=== PATIENT | female | born 2000 | race Caucasian/White ===

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

== ENCOUNTER 2019-04-18 19:11 | Emergency (ER) | payer BC, OTHER ==
--- OUTSIDE RECORDS SUMMARY | 2019-04-18 19:21 | XMS REPORT | Continuity of Care Document ---
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 Onset: 03/09/2015 Social History Type Date Description Comments Sex Unknown Tobacco Use Start: Unknown Never Smoked Cigarettes ETOH Use Never used alcohol Recreational Drug Use Denies Drug Use Tobacco Use Start: Unknown Patient denies history of smoking Smoking Status Reviewed: 02/21/19 Patient denies history of smoking Allergies, Adverse Reactions, Alerts Active Allergies Reaction Severity Comments Date Acetaminophen lips swell 02/04/2018 Inactive Allergies NKDA 03/09/2015 Medications Active Medications SIG Qnty Indications Ordering Date Provider Prazosin HCL one capsule PO an 60caps F51.5 Jacqueline, 02/21/2019 1mg hour prior to Jenniferleigh, Capsules bedtime, if not THERAPEUTIC RECREATION DIRECTOR effective in 3-4 days can increase to 2 capsules Nuvaring insert vaginally 3units Z30.015 Jacqueline, 02/21/2019 for 3 weeks, then Jenniferleigh, 0.12-0.015mg/24HR remove for one THERAPEUTIC RECREATION DIRECTOR Ring week Buspirone HCL take one to one 90tabs F41.1 [place], 10/10/2018 7.5mg and a half tablet Jenniferleigh, Tablets by mouth up to THERAPEUTIC RECREATION DIRECTOR three times a day as needed for anxiety Escitalopram Oxalate 1 full tablet by 90tabs F41.1 [place], 09/29/2018 mouth every day Jenniferleigh, 20mg Tablets THERAPEUTIC RECREATION DIRECTOR Immunizations CPT Code Status Date Vaccine Lot # [id number] Given 02/04/2018 Influenza Virus Vaccine, Quadrivalent, 36 Mos+, [id number] .[id number] U-MenB Given 05/28/2017 Meningococcal B,Unspecified 18430 Given 04/30/2016 Meningococcal Conjugate Vaccine Serogroups For Intramuscular Use 21157 Given 01/24/2013 Gardasil 29989 Given 09/01/2012 Meningococcal Conjugate Vaccine Serogroups For Intramuscular Use 16288 Given 06/23/2012 Tdap injection 60653 Given 06/10/2012 Gardasil 97341 Given 03/04/2010 Tdap injection 57138 Given 02/03/2007 Varicella (Chicken Pox) Vaccine 35432 Given 10/06/2004 Poliovirus Vaccine Subcutaneous Or Intramuscular 06845 Given 10/06/2004 MMR Vaccine, Live, For Subcutaneous Use 56816 Given 10/06/2004 DTaP Vaccine Younger Than 7 54635 Given 12/19/2002 Varicella (Chicken Pox) Vaccine 60521 Given 04/11/2002 Gardasil 49446 Given 06/23/2001 Hib PRP-T Conjugate 4 Dose Schedule 87702 Given 06/23/2001 DTaP Vaccine Younger Than 7 97069 Given 03/22/2001 MMR Vaccine, Live, For Subcutaneous Use 74387 Given 09/07/2000 Hepatitis B Vaccine Pediatric/Adolescent 90575 Given 09/07/2000 Hib PRP-T Conjugate 4 Dose Schedule 73497 Given 06/10/2000 Poliovirus Vaccine Subcutaneous Or Intramuscular 40252 Given 06/10/2000 DTaP Vaccine Younger Than 7 52162 Given 04/12/2000 Poliovirus Vaccine Subcutaneous Or Intramuscular 25872 Given 04/12/2000 DTaP Vaccine Younger Than 7 35051 Given 02/13/2000 Poliovirus Vaccine Subcutaneous Or Intramuscular 67371 Given 02/13/2000 DTaP Vaccine Younger Than 7 44816 Given 01/26/2000 Hepatitis B Vaccine Pediatric/Adolescent 50870 Given 01/26/2000 Hib PRP-T Conjugate 4 Dose Schedule 69961 Given 1999 Hepatitis B Vaccine Pediatric/Adolescent 34609 Given 1999 Hib PRP-T Conjugate 4 Dose Schedule Vital Signs Date Vital Result Comment 02/21/2019 2:19pm BP Systolic 141 mmHg BP Diastolic 84 mmHg Body Temperature 98.5 F Heart Rate 95 /min Respiratory Rate 18 /min Height 67 inches 5'7" Weight 170.38 lb BMI (Body Mass Index) 26.7 kg/m2 BSA (Body Surface Area) 1.89 m2 [place] body weight in kilograms 61 kg Height Percentile 86 % Weight Percentile 92nd O2 % BldC Oximetry 98 % Ra 02/07/2019 7:53am BP Systolic Sitting Left Arm 128 mmHg BP Diastolic Sitting Left Arm 70 mmHg Body Temperature 98.0 F Heart Rate 84 /min Respiratory Rate 18 /min Height 67 inches 5'7" Weight 169.38 lb BMI (Body Mass Index) 26.5 kg/m2 BSA (Body Surface Area) 1.88 m2 [place] body weight in kilograms 61 kg Height Percentile 86 % Weight Percentile 92nd Results Test Acquired Date Facility Test Result H/L Range Note CBC 02/07/[address] White Blood 6.6 K/uL Normal 3.1-10.7 1 W/Automated [address] Count Diff [place], [place] [id number] [phone] Red Blood Count 4.37 M/uL Normal 3.90-5.40 Hemoglobin 13.0 gm/dL Normal 11.6-15.8 Hematocrit 39.4 % Normal 36.0-46.1 Mean Cell Volume 90.2 fl Normal 80.9-99.0 Mean Corpuscular HGB 29.7 pg Normal 25.9-32.7 Mean Corpuscular HGB Conc 33.0 g/dL Normal 30.8-34.3 Platelet Count 265 K/uL Normal 155-360 Red Cell Distri Width SD 38.5 fl Normal 36-47 Red Cell Distri Width %CV 11.8 % Normal 11.7-14.4 Mean Platelet Volume 9.6 fl Normal 8.9-12.4 Neut% 48.7 % Normal 28.0-68.0 Lymph % 40.9 % Normal 20.0-42.0 [place] % 6.9 % Normal 4.3-13.2 Eo% 2.7 % Normal 0.0-6.6 Bas% 0.6 % Normal 0.0-1.1 Immature Grans 0.2 % Normal 0.0-5.0 NRBC % 0.0 /100WBC < 10/ 100 WBC Neut# 3.23 K/uL Normal 1.8-7.0 Lymph # 2.71 K/uL Normal 1.0-4.0 [place] # 0.46 K/uL Normal 0.3-0.9 Eos # 0.18 K/uL Normal 0.0-0.5 Baso # 0.04 K/uL Normal 0.0-0.1 Immature Grans Absolute 0.01 K/uL NRBC # 0.00 K/uL Laboratory test 02/07/[address] [facility] [address] Thyroid 1.75 Normal 0.30- 4.[address] Stim uIU/[place] [address] Hormone [phone] 1 R53.83 Procedures Date Code Description Status 09/29/2018 04826 Brief Emotional/Behav Assessment W/ Scoring Doc Per Completed Standard Inst Medical Devices Description No Information Available Encounters Type Date Location Provider Dx Diagnosis Office Visit 02/21/2019 [facility] Maulik Villatoro.5 Nightmare disorder 2:15p [address] VIDAL Mario Z30.015 Encounter for initial prescription of vagnl ring Office Visit 02/07/2019 [facility] F41.1 Generalized 8:00a Medicine VIDAL العلي anxiety disorder RD R53.83 Other fatigue Office Visit 11/15/2018 [facility] F41.1 Generalized 10:00a Medicine VIDAL العلي anxiety disorder RD Office Visit 10/10/2018 [facility] F41.1 Generalized 3:30p Medicine VIDAL العلي anxiety disorder RD Office Visit 09/29/2018 [facility] F41.1 Generalized 10:45a Medicine VIDAL العلي anxiety disorder RD Assessments Date Code Description Provider 02/21/2019 F51.5 Nightmare disorder Shelbi Phillips FNP 02/21/2019 Z30.015 Encounter for initial prescription of Shelbi Phillips FNP vaginal ring hormonal contraceptive 02/07/2019 F41.1 Generalized anxiety disorder RajanVale millerVIDAL [place] 02/07/2019 R53.83 Other fatigue Jacqueline VIDAL Mario 11/15/2018 F41.1 Generalized anxiety disorder Shelbi Phillips FNP 10/10/2018 F41.1 Generalized anxiety disorder Shelbi Phillips FNP 09/29/2018 F41.1 Generalized anxiety disorder Shelbi Phillips FNP Plan of Treatment Future Appointment(s):03/07/2019 11:15 am - Shelbi [facility]02/21/2019 - Shelbi Phillips FNPF51.5 Nightmare disorderNew Medication:Prazosin HCL 1 mg - one capsule PO an hour prior to bedtime, if not effective in 3-4 days can increase to 2 capsulesComments: Reviewed night terrors, usually a function of being overtired and/or anxietyDiscussed use of medication - start with 1 full tablet, if needed can go up to 2 tablets after 3-4 days. If daytime drowsiness take 2 hours before bedtimeFollow up:2 weeks recheck sleep 15 minZ30.015 Encounter for initial prescription of vaginal ring hormonal contraceptiveNew Medication:Nuvaring 0.12- 0.015 mg/24HR - insert vaginally for 3 weeks, then remove for one weekComments: Discussed switching to ring when you are due to start next pack of pills. Leave in for 3 weeks, then take out (will get period) and use new ring a week later. Functional Status Functional Condition Comment Date Status Independent with all ADL's Active Mental Status Description No Information Available Referrals Description No Information Available
[2019-04-18 19:25] VITALS: BP 137/81
[2019-04-18] MEDS ORDERED: Sulfamethox/Trimethoprim DS 800/160* TAB PO ONE (19:35)
--- NOTE | 2019-04-18 19:39 | UC ---
Complaint Female HPI - HPI Summary HPI Summary: dysuria x 1 day burning / frequency , urgency , lower abdominal pain no fever, no chills, no flank pain no n/v/d/c - History Of Current Complaint Chief Complaint: UCGU Stated Complaint: URINARY Time Seen by Provider: 04/18/19 19:15 Hx Obtained From: Patient Hx Last Menstrual Period: 10/01/15 Onset/Duration: Gradual Onset, Lasting Days - 1, Still Present Timing: Constant Severity Initially: Moderate Severity Currently: Moderate Pain Intensity: 2 Character: Burning Aggravating Factor(s): Urination Associated Signs And Symptoms: Negative: Fever, Back Pain, Vaginal Bleeding/ Discharge, Vaginal Discharge, Nausea, Vomiting(# Of Episodes =), Genital Swelling, Genital Blisters, Retained Foregin Body (Specify) Related Hx: Similar Episode/Dx as: - UTI - Allergies/Home Medications Allergies/Adverse Reactions: Allergies Allergy/AdvReac Type Severity Reaction Status Date / Time acetaminophen Allergy Facial Verified 04/18/19 19:31 Redness/Flushing environmental Allergy Sneezing Uncoded 04/18/19 19:23 Home Medications: Home Medications Etonogest/Eth.estradiol (Nf) [Nuvaring Vaginal Ring] 1 each VAGINAL .SEE COMMENTS 04/18/19 [History Confirmed 04/18/19] PMH/Surg Hx/FS Hx/Imm Hx Previously Healthy: Yes - Surgical History Surgical History: Yes Surgery Procedure, Year, and Place: left wrist injury - Family History Known Family History: Negative: Cardiac Disease, Hypertension - Social History Alcohol Use: Occasionally Substance Use Type: None Smoking Status (MU): Never Smoked Tobacco Have You Smoked in the Last Year: No - Immunization History Hx Tetanus, Diphtheria Vaccination: Yes Vaccination Up to Date: Yes Review of Systems All Other Systems Reviewed And Are Negative: Yes Genitourinary: Positive: Dysuria, Frequency, Urgency Is Patient Immunocompromised?: No Physical Exam Triage Information Reviewed: Yes Appearance: Well-Appearing, No Pain Distress, Well-Nourished Vital Signs: Initial Vital Signs Temp 99.0 F 04/18/19 19:23 Pulse 70 04/18/19 19:23 Resp 15 04/18/19 19:23 BP 137/81 04/18/19 19:23 Pulse Ox 100 04/18/19 19:23 Vital Signs Reviewed: Yes Eye Exam: Normal ENT: Positive: Normal ENT inspection, Hearing grossly normal Neck: Positive: Supple, Nontender, No Lymphadenopathy Respiratory: Positive: Chest non-tender, Lungs clear, Normal breath sounds Cardiovascular: Positive: RRR, No Murmur, Pulses Normal Abdominal Exam: Normal Abdomen Description: Positive: Soft. Negative: CVA Tenderness (R), CVA Tenderness (L), Distended, Guarding Bowel Sounds: Positive: Present Skin Exam: Normal Complaint Female Dx - Differential Dx/Diagnosis Provider Diagnosis: UTI (urinary tract infection) Discharge ED - Sign-Out/Discharge Documenting (check all that apply): Patient Departure All imaging exams completed and their final reports reviewed: No Studies - Discharge Plan Condition: Stable Disposition: HOME Prescriptions: Sulfamethox/Trimethoprim DS* [Bactrim DS 800/160 TAB*] 1 tab PO BID #10 tab Patient Education Materials: Urinary Tract Infection in Women (DC) Referrals: Vale Phillips NP [Primary Care Provider] - If Needed - Billing Disposition and Condition Condition: STABLE Disposition: Home
[2019-04-18] MEDS ORDERED: Sulfamethox/Trimethoprim DS 800/160* TAB PO SCH (21:00)
== END 2019-04-18 19:43 | disposition home or self-care (01) ==
LOC: UCCORT 19:11
DX: N39.0 Urinary tract infection, site not specified (principal); R10.9 Unspecified abdominal pain; Z88.6 Allergy status to analgesic agent; Z91.09 Other allergy status, other than to drugs and biological substances
CPT/HCPCS: 81003; 87086; 99212; A9270-GY; G0463